=== PATIENT | female | born 1955 | race Caucasian/White ===

== ENCOUNTER 2016-06-12 17:53 | Inpatient (IN) ==
--- NOTE | 2016-06-12 18:12 | Emergency Department Note ---
START Narrative - START START: I examined this patient and my medical decision-making was reviewed with the PIG BREEDER/PA/Advanced Practice Nurse/Resident Physician. I agree with the documented findings, disposition and treatment plan as described except to the extent set forth below. ED attending note: Patient seen with emergency medicine resident Dr. Callahan. We independently evaluated the patient. We independently had [id number] contact with the patient. Please see a copy of his note for details of the history and physical, evaluation, management and disposition of this emergency Department patient. Briefly: A 60-year-old female history of cancer presents unresponsive per EMS from home. Pinpoint pupils. Blood sugar and field was 92. Patient has cool hands and feet pinpoint pupils. Seems to be responding to 2 A of Narcan given in field by EMS. Patient's left-sided chest port was accessed. Rectal temperature shows a reading of 93 degrees, which is moderate hypothermia. Provided one hour and 10 minutes of critical care services for this patient. No known advanced directives. Sepsis protocol ordered and being initiated. Disposition pending.
[2016-06-12] MEDS: 0.9 % Sodium Chloride 1,000 ML IVC SCH ×2 (18:15→18:30)
--- NOTE | 2016-06-12 18:18 | Emergency Department Note ---
Disposition Clinical Impression: Septic shock, Shock liver, SHERICE (acute kidney injury), Lactic acidosis, Acute respiratory failure with hypercapnia Altered mental status Qualifiers: Altered mental status type: coma Coma depth: Fernando coma 3-8 Coma timing: at arrival to emergency department Qualified Code(s): R40.2432 - Fernando coma scale score 3-8, at arrival to emergency department Sepsis Qualifiers: Sepsis type: sepsis due to unspecified organism Qualified Code(s): A41.9 - Sepsis, unspecified organism UTI (urinary tract infection) Qualifiers: Urinary tract infection type: site unspecified Hematuria presence: with hematuria Qualified Code(s): N39.0 - Urinary tract infection, site not specified ; R31.9 - Hematuria, unspecified Disposition: Admitted As Inpatient Condition: Critical Time of Disposition: 20:49 Altered Mental Status HPI - General Chief Complaint: ED Altered Mental Status Stated Complaint: AMS Source: EMS Mode of arrival: EMS Limitations: altered mental status Nursing Notes Reviewed: Yes Vital Signs Reviewed: Yes - History of Present Illness HPI Narrative: 60-year-old female with a history of lung cancer presents to the emergency department for evaluation of altered mental status. The history surrounding the patient's presentation is severely limited due to the patient's mentation. Per EMS they were called for a poorly responsive female. The only details that they were given is that she has a history of cancer. When he arrived they noted that the patient had pinpoint pupils and gave her 4 mg of Narcan in route with limited responsiveness. Patient arrives to the emergency department altered and in distress. Patient is noted to be hypotensive 90s systolic. She also noted to be relatively hypoxic at 88% on nonrebreather. That is steadily increasing with resuscitation efforts. Initial GCS is 4 to 5. Gag reflex is unobtainable secondary to the patient's clenching. Airway is patent without sonorous respirations. Initial rectal temperature is 93F. Pupils are pinpoint and nonreactive. Lungs are diminished bilaterally. Abdomen is soft and nontender. Heart regular rate and rhythm. Patient does have moderate pedal edema noted. Extremities are cool and mottled. There is no clear resuscitation status known at this time. We are awaiting family's arrival to determine CODE STATUS. MD complaint: altered mental status, decreased responsiveness Onset (ago): unknown Context: cancer Treatments prior to arrival: IV fluid, oxygen - Related Data Home Medications Medication Instructions Recorded Confirmed Mykelpril [Zestril] 2.5 mg PO DAILY 12/22/15 06/12/16 Furosemide [Lasix] 20 mg PO DAILY PRN 04/19/16 06/12/16 Metoprolol Succinate 12.5 mg PO DAILY 04/19/16 06/12/16 Aspirin 81 mg PO DAILY 06/06/16 06/12/16 Oxygen 2 l NS AD PRN 06/06/16 06/12/16 Potassium Chloride [K-Tab ER] 10 meq PO DAILY 06/06/16 06/12/16 Atorvastatin [Lipitor] 40 mg PO DAILY 06/12/16 06/12/16 Budesonide/Formoterol 160/4.5 2 puff IH BID 06/12/16 06/12/16 [Symbicort 160/4.5] Dexamethasone [Decadron] 4 mg PO BID 06/12/16 06/12/16 Levofloxacin [Levaquin] 500 mg PO DAILY 06/12/16 06/12/16 Ondansetron HCl [Zofran] 4 mg PO Q6H PRN 06/12/16 06/12/16 Prochlorperazine Maleate 10 mg PO Q6HR PRN 06/12/16 06/12/16 [Compazine] Allergies Allergy/AdvReac Type Severity Reaction Status Date / Time No Known Allergies Allergy Verified 06/06/16 13:20 Limitations: ROS unobtainable due to patients medical condition (Altered mentation) Past Medical History - Past Medical History Medical history: Reports: cancer, CHF, COPD, coronary artery disease, myocardial infarction, TIA Surgical history: Reports: no surgical history Psychiatric history: Reports: no psych history - Social History Smoking Status: Current every day smoker Smokeless Tobacco Status: No Alcohol use: Reports: none Drug use: Reports: none Physical Exam - General Limitations: altered mental status General appearance: obtunded, other - Head Head exam: atraumatic, normocephalic, normal inspection - Eye Eye exam: Present: miosis - ENT ENT exam: normal oropharynx, mucous membranes moist - Neck Neck exam: Present: normal inspection, trachea midline - Chest Chest inspection: Present: normal inspection, symmetric chest wall rise - Respiratory Respiratory exam: Present: other (Diminished breath sounds bilaterally) - Cardiovascular Cardiovascular exam: Present: regular rate, normal rhythm, normal heart sounds - Abdominal Exam Abdominal exam: Present: soft, Non-Tender. Absent: tenderness, distention, guarding, rebound, rigidity - Extremities Exam Extremities exam: Present: pedal edema - Neurological Exam Neurological exam: Present: other (Patient is altered and poorly responsive, initial GCS of 4) - Skin Skin exam: Present: mottled Course - Reevaluation(s) Reevaluation #1: No family present in the emergency department. I reviewed the patient's previous oncology notes and I do not see any documented CODE STATUS. The patient 's mentation remains poor. ABG returns and is noted to be profoundly acidotic and hypercapnic. GCS remains 4-5. Decision is made to proceed with intubation to protect the patient's airway as well as improve oxygenation and ventilation. Please see procedure note for further details. Time: 18:50 Reevaluation #2: Discussed findings with hospitalist service. Patient accepted for further evaluation and treatment. Patient is in critical condition at time of disposition. I did discuss with the family that the patient is seriously ill and may not live through the night. They are understanding and will return in the morning. Time: 20:48 Vital Signs Temperature 93 F L 06/12/16 17:56 Pulse Rate 71 06/12/16 17:56 Respiratory Rate 22 06/12/16 17:56 Blood Pressure 92/30 06/12/16 17:56 O2 Sat by Pulse Oximetry 94 L 06/12/16 17:56 Temperature 93 F L 06/12/16 17:56 Pulse Rate 75 06/12/16 20:35 Respiratory Rate 20 06/12/16 20:35 Blood Pressure 84/41 06/12/16 20:35 O2 Sat by Pulse Oximetry 99 06/12/16 20:35 Oxygen Delivery Oxygen Delivery Ventilator Procedures - Intubation Time out performed: No sedative: Etomidate Mg Given: 20 paralytic: Rocuronium Mg Given: 70 Laryngoscope: Dannielle ET Tube Size: 7.5 ET Tube Uncuffed: No Tube Secured Depth (cm): 21 Tube Secured Location: teeth Tube Placement Confirmation: visualized tube passing through cords, equal breath sounds bilaterally, no breath sounds over epigastrium, confirmation by capnometry Patient Tolerated Procedure: well, no complications Intubation Complications: none Altered Mental Status - Medical Records Medical records reviewed: Yes I reviewed the patient's medical records. - Lab Data Lab results reviewed: Yes I reviewed the patient's lab results. Result diagrams: 06/12/16 19:10 06/12/16 19:10 Lab Results 06/12/16 06/12/16 06/12/16 Range/Units 18:11 18:15 19:10 WBC 24.1 H (4.3-11.1) K/mcL RBC 3.21 L (3.82-4.97) M/mcL Hgb 10.4 L (11.5-15.4) g/dL Hct 37.0 (35.3-44.9) % MCV 115.3 H D (83.0-100.0) fL MCH 32.4 (28.0-33.3) pg MCHC 28.1 L (31.6-35.5) g/dL RDW 16.8 H (11.5-14.5) % Plt Count 236 (140-400) K/mcL MPV 10.6 (9.4-12.4) fL Immature Gran % 1.0 (0-4) % Seg Neutrophils % 95.4 % Lymphocytes % 0.9 % Monocytes % 2.6 % Eosinophils % 0.0 % Basophils % 0.1 % Neutrophils # 23.0 H (1.6-8.9) K/mcL Lymphocytes # 0.2 L (0.6-4.6) K/mcL Monocytes # 0.6 (0.0-1.3) K/mcL Eosinophils # 0.0 (0.0-0.6) K/mcL Basophils # 0.0 (0.0-0.2) K/mcL Nucleated RBCs/100 WBC 0.4 H (0) /100 WBC Platelet Estimate Normal (Normal) Hypochromasia Present A (Not Present) Anisocytosis 2+ A (Not Present) Macrocytosis Present A (Not Present) ABG pH 6.94 L* (7.32-7.45) pH Units ABG pCO2 90 H* (35-45) mmHg ABG pO2 94 (85-104) mmHg ABG HCO3 19.3 L (21-27) mEQ/L ABG Total CO2 22.1 (20-26) mEq/L ABG O2 Saturation 91 L (95-98) % ABG Base Excess -14.5 L (-2.0 to 3.0) mEq/L Blood Gas Modality NRB Inspired O2 100 % Sodium (136-145) mEq/L Potassium (3.5-4.5) mEq/L Chloride (98-109) mEq/L Carbon Dioxide (19-29) mEq/L BUN (7-20) mg/dL Creatinine (0.57-1.11) mg/dL Est GFR ( Amer) (> 60) Est GFR (Non-Af Amer) (> 60) BUN/Creatinine Ratio (6-26) Glucose (70-99) mg/dL Calculated Osmolality (280-300) Lactic Acid (0.5-2.2) mmol/L Calcium (8.6-10.8) mg/dL Phosphorus (2.3-4.7) mg/dL Magnesium (1.6-2.6) mg/dL Total Bilirubin (0.2-1.2) mg/dL Direct Bilirubin (0.0-0.5) mg/dL Indirect Bilirubin (0.0-1.2) mg/dL AST (5-34) Units/L ALT (0-55) Units/L Alkaline Phosphatase (38-126) Units/L Troponin I (0-0.03) ng/mL Serum Total Protein (6.0-8.3) g/dL Albumin (3.5-5.0) g/dL Globulin (2.4-3.5) g/dL Albumin/Globulin Ratio (1.1-2.2) Urine Color Yellow (Yellow) Urine Clarity Cloudy A (Clear) Urine pH 5.0 (5.0-8.0) pH Units Ur Specific Donalds 1.025 (1.010-1.025) Urine Protein 100 H (Neg-Trace) mg/dL Urine Glucose (UA) Normal (Normal) mg/dL Urine Ketones Negative (Negative) mg/dL Urine Blood Negative (Negative) Urine Nitrite Negative (Negative) Urine Bilirubin Small H (Negative) Urine Urobilinogen Normal (Normal) mg/dL Ur Leukocyte Esterase Small H (Negative) Urine Microscopic RBC 3-5 H (0-3) per hpf Urine Microscopic WBC TNTC H (0-3) per hpf Ur Squamous Epith Cells Many H (None-Few) per lpf Urine Bacteria Many H (None-Few) per hpf Hyaline Casts Few (None-Few) per lpf Urine Yeast Few H (None Seen) per hpf Ur Culture Indicated? YES A (NO) 06/12/16 06/12/16 06/12/16 Range/Units 19:10 19:10 19:10 WBC (4.3-11.1) K/mcL RBC (3.82-4.97) M/mcL Hgb (11.5-15.4) g/dL Hct (35.3-44.9) % MCV (83.0-100.0) fL MCH (28.0-33.3) pg MCHC (31.6-35.5) g/dL RDW (11.5-14.5) % Plt Count (140-400) K/mcL MPV (9.4-12.4) fL Immature Gran % (0-4) % Seg Neutrophils % % Lymphocytes % % Monocytes % % Eosinophils % % Basophils % % Neutrophils # (1.6-8.9) K/mcL Lymphocytes # (0.6-4.6) K/mcL Monocytes # (0.0-1.3) K/mcL Eosinophils # (0.0-0.6) K/mcL Basophils # (0.0-0.2) K/mcL Nucleated RBCs/100 WBC (0) /100 WBC Platelet Estimate (Normal) Hypochromasia (Not Present) Anisocytosis (Not Present) Macrocytosis (Not Present) ABG pH (7.32-7.45) pH Units ABG pCO2 (35-45) mmHg ABG pO2 (85-104) mmHg ABG HCO3 (21-27) mEQ/L ABG Total CO2 (20-26) mEq/L ABG O2 Saturation (95-98) % ABG Base Excess (-2.0 to 3.0) mEq/L Blood Gas Modality Inspired O2 % Sodium 140 (136-145) mEq/L Potassium 5.5 H (3.5-4.5) mEq/L Chloride 105 (98-109) mEq/L Carbon Dioxide 17 L (19-29) mEq/L BUN 42 H (7-20) mg/dL Creatinine 2.34 H (0.57-1.11) mg/dL Est GFR ( Amer) 26 L (> 60) Est GFR (Non-Af Amer) 21 L (> 60) BUN/Creatinine Ratio 18 (6-26) Glucose 102 H (70-99) mg/dL Calculated Osmolality 301 H (280-300) Lactic Acid 9.6 H* (0.5-2.2) mmol/L Calcium 6.8 L (8.6-10.8) mg/dL Phosphorus 9.6 H (2.3-4.7) mg/dL Magnesium 1.9 (1.6-2.6) mg/dL Total Bilirubin 1.2 (0.2-1.2) mg/dL Direct Bilirubin 0.8 H (0.0-0.5) mg/dL Indirect Bilirubin 0.4 (0.0-1.2) mg/dL AST 4520 H (5-34) Units/L ALT 1811 H (0-55) Units/L Alkaline Phosphatase 100 (38-126) Units/L Troponin I 0.17 H* (0-0.03) ng/mL Serum Total Protein 5.2 L (6.0-8.3) g/dL Albumin 1.6 L (3.5-5.0) g/dL Globulin 3.6 H (2.4-3.5) g/dL Albumin/Globulin Ratio 0.4 L (1.1-2.2) Urine Color (Yellow) Urine Clarity (Clear) Urine pH (5.0-8.0) pH Units Ur Specific Donalds (1.010-1.025) Urine Protein (Neg-Trace) mg/dL Urine Glucose (UA) (Normal) mg/dL Urine Ketones (Negative) mg/dL Urine Blood (Negative) Urine Nitrite (Negative) Urine Bilirubin (Negative) Urine Urobilinogen (Normal) mg/dL Ur Leukocyte Esterase (Negative) Urine Microscopic RBC (0-3) per hpf Urine Microscopic WBC (0-3) per hpf Ur Squamous Epith Cells (None-Few) per lpf Urine Bacteria (None-Few) per hpf Hyaline Casts (None-Few) per lpf Urine Yeast (None Seen) per hpf Ur Culture Indicated? (NO) - Radiology Data Radiology results reviewed: Yes I reviewed the patient's radiology results. - EKG Data EKG attestation: Yes I reviewed and interpreted this EKG. EKG shows normal: sinus rhythm Rate: normal Rhythm: NSR Eagle/QRS: normal Interpretation: no acute changes TPA Checklist - LKW: 3-4.5 hrs Add. Contraindications Patient/family understanding: The patient/family members have been counseled and understood the risk, benefit , and alternatives of treatment.
[2016-06-12 18:20] LABS: ABG Base Excess -14.5 mEq/L (-2.0 to 3.0); ABG HCO3 19.3 mEQ/L (21-27); ABG Oxygen Saturation 91 % (95-98); ABG PO2 94 mmHg (85-104); ABG TCO2 22.1 mEq/L (20-26)
[2016-06-12 18:21] LABS: Blood Gas FiO2 100 %
[2016-06-12 18:22] LABS: ABG PH 6.94 pH Units (7.32-7.45)
[2016-06-12 18:23] LABS: ABG PCO2 90 mmHg (35-45)
[2016-06-12 18:49] LABS: Bilirubin,Urine Small (Negative); Blood,Urine Negative (Negative); Clarity,Urine Cloudy (Clear); Color,Urine Yellow (Yellow); Glucose,Urine (UA) Normal (Normal); Ketones,Urine Negative (Negative); Leukocyte Esterase,Urine Small (Negative); Nitrite,Urine Negative (Negative); Protein,Urine 100 mg/dL (Neg-Trace); Specific Gravity,Urine 1.025 (1.010-1.025); Urobilinogen,Urine Normal (Normal)
[2016-06-12 18:52] LABS: Squamous Epithelial Cell,Urine Many per lpf (None-Few); WBC,Urine TNTC per hpf (0-3)
[2016-06-12] MEDS ORDERED: *HR* Rocuronium Bromide 50 MG/5 ML VIAL IVP ONE (18:53)
[2016-06-12] MEDS ORDERED: *HR* Etomidate 20 MG/10 ML AMPUL IVP ONE (18:54)
[2016-06-12] MEDS ORDERED: 0.9 % Sodium Chloride 1,000 ML IV ONE (18:55)
[2016-06-12] MEDS ORDERED: 0.9 % Sodium Chloride 1,000 ML IVC SCH (19:00)
[2016-06-12 19:03] LABS: Bacteria,Urine Many per hpf (None-Few); Hyaline Casts,Urine Few per lpf (None-Few); Yeast,Urine Few per hpf (None Seen)
[2016-06-12] MEDS: Norepinephrine 4 MG in D5% in Water 250 ML IVC SCH ×2 (19:22→23:44)
[2016-06-12 19:23] LABS: Mean Platelet Volume 10.6 fL (9.4-12.4)
[2016-06-12 19:24] LABS: Basophils % 0.1 %; Hemoglobin 10.4 g/dL (11.5-15.4); Lymphocytes # 0.2 K/mcL (0.6-4.6); Lymphocytes % 0.9 %; Mean Corpuscular HGB Conc 28.1 g/dL (31.6-35.5); Mean Corpuscular Hemoglobin 32.4 pg (28.0-33.3); Mean Corpuscular Volume 115.3 fL (83.0-100.0); Monocytes # 0.6 K/mcL (0.0-1.3); Monocytes % 2.6 %; Nucleated Red Blood Cells 0.4 /100 WBC (0); Platelet Count 236 K/mcL (140-400); Red Blood Count 3.21 M/mcL (3.82-4.97); Red Cell Distribution Width 16.8 % (11.5-14.5); Segmented Neutrophils % 95.4 %
[2016-06-12] MEDS ORDERED: Vancomycin 750 MG in D5% in Water 250 ML IVPB ONE (19:34)
[2016-06-12] MEDS ORDERED: Piperacillin/Tazobactam 3.375 GM in D5% in Water (Mini-Bag+) 100 ML IVPB ONE (19:34)
[2016-06-12] MEDS ORDERED: Levofloxacin 750 MG/150 ML 750 MG/150 ML BAG IVPB ONE (19:34)
[2016-06-12 19:35] LABS: Albumin/Globulin Ratio 0.4 (1.1-2.2); Bilirubin,Direct 0.8 mg/dL (0.0-0.5); Bilirubin,Indirect 0.4 mg/dL (0.0-1.2); Bilirubin,Total 1.2 mg/dL (0.2-1.2); Calcium 6.8 mg/dL (8.6-10.8); Globulin 3.6 g/dL (2.4-3.5); Magnesium 1.9 mg/dL (1.6-2.6); Phosphorous 9.6 mg/dL (2.3-4.7); Potassium 5.5 mEq/L (3.5-4.5); Total Protein 5.2 g/dL (6.0-8.3)
[2016-06-12 19:38] LABS: Albumin 1.6 g/dL (3.5-5.0)
[2016-06-12] MEDS ORDERED: Dexmedetomidine HCl 400 MCG/100 ML MLS IVC SCH (19:45)
[2016-06-12 19:46] LABS: Anisocytosis 2+ (Not Present); Hypochromasia Present (Not Present); Macrocytosis Present (Not Present); Platelet Estimate Normal (Normal)
--- NOTE | 2016-06-12 20:43 | Emergency Department Note ---
Disposition Clinical Impression: Septic shock, Shock liver, SHERICE (acute kidney injury), Lactic acidosis, Acute respiratory failure with hypercapnia Altered mental status Qualifiers: Altered mental status type: coma Coma depth: Fernando coma 3-8 Coma timing: at arrival to emergency department Qualified Code(s): R40.2432 - Fernando coma scale score 3-8, at arrival to emergency department Sepsis Qualifiers: Sepsis type: sepsis due to unspecified organism Qualified Code(s): A41.9 - Sepsis, unspecified organism UTI (urinary tract infection) Qualifiers: Urinary tract infection type: site unspecified Hematuria presence: with hematuria Qualified Code(s): N39.0 - Urinary tract infection, site not specified Disposition: Admitted As Inpatient Condition: Critical Time of Disposition: 18:40 Altered Mental Status HPI - General Chief Complaint: ED Altered Mental Status Stated Complaint: AMS Source: EMS Mode of arrival: EMS Limitations: altered mental status Nursing Notes Reviewed: Yes Vital Signs Reviewed: Yes - History of Present Illness MD complaint: altered mental status - Related Data Home Medications Medication Instructions Recorded Confirmed Lisinopril [Zestril] 2.5 mg PO DAILY 12/22/15 06/12/16 Furosemide [Lasix] 20 mg PO DAILY PRN 04/19/16 06/12/16 Metoprolol Succinate 12.5 mg PO DAILY 04/19/16 06/12/16 Aspirin 81 mg PO DAILY 06/06/16 06/12/16 Oxygen 2 l NS AD PRN 06/06/16 06/12/16 Potassium Chloride [K-Tab ER] 10 meq PO DAILY 06/06/16 06/12/16 Atorvastatin [Lipitor] 40 mg PO DAILY 06/12/16 06/12/16 Budesonide/Formoterol 160/4.5 2 puff IH BID 06/12/16 06/12/16 [Symbicort 160/4.5] Dexamethasone [Decadron] 4 mg PO BID 06/12/16 06/12/16 Levofloxacin [Levaquin] 500 mg PO DAILY 06/12/16 06/12/16 Ondansetron HCl [Zofran] 4 mg PO Q6H PRN 06/12/16 06/12/16 Prochlorperazine Maleate 10 mg PO Q6HR PRN 06/12/16 06/12/16 [Compazine] Allergies Allergy/AdvReac Type Severity Reaction Status Date / Time No Known Allergies Allergy Verified 06/06/16 13:20 Past Medical History - Past Medical History Medical history: Reports: cancer, CHF, COPD, coronary artery disease, myocardial infarction, TIA Surgical history: Reports: no surgical history Psychiatric history: Reports: no psych history - Social History Smoking Status: Current every day smoker Smokeless Tobacco Status: No Alcohol use: Reports: none Drug use: Reports: none Physical Exam - General Limitations: altered mental status General appearance: obtunded, other Course Vital Signs Temperature 93 F L 06/12/16 17:56 Pulse Rate 71 06/12/16 17:56 Respiratory Rate 22 06/12/16 17:56 Blood Pressure 92/30 06/12/16 17:56 O2 Sat by Pulse Oximetry 94 L 06/12/16 17:56 Temperature 98.3 F 06/13/16 11:23 Pulse Rate 90 06/13/16 11:30 Respiratory Rate 18 06/13/16 11:30 Blood Pressure 97/62 06/13/16 11:30 O2 Sat by Pulse Oximetry 81 L 06/13/16 12:25 Oxygen Delivery Oxygen Delivery Ventilator Procedures - Intubation Time out performed: Yes sedative: Etomidate Mg Given: 20 paralytic: Rocuronium Mg Given: 70 Laryngoscope: Dannielle ET Tube Size: 7.5 ET Tube Uncuffed: No Tube Secured Depth (cm): 22 Tube Secured Location: lips Tube Placement Confirmation: visualized tube passing through cords, equal breath sounds bilaterally, no breath sounds over epigastrium, confirmation by capnometry Patient Tolerated Procedure: no complications Intubation Complications: none Altered Mental Status - [facility] Narrative Medical decision making narrative: This is a procedure note for any emergent endotracheal tube intubation - Lab Data Result diagrams: 06/13/16 04:10 06/13/16 04:10 Lab Results 06/12/16 06/12/16 06/12/16 Range/Units 18:11 18:15 19:10 WBC 24.1 H (4.3-11.1) K/mcL RBC 3.21 L (3.82-4.97) M/mcL Hgb 10.4 L (11.5-15.4) g/dL Hct 37.0 (35.3-44.9) % MCV 115.3 H D (83.0-100.0) fL MCH 32.4 (28.0-33.3) pg MCHC 28.1 L (31.6-35.5) g/dL RDW 16.8 H (11.5-14.5) % Plt Count 236 (140-400) K/mcL MPV 10.6 (9.4-12.4) fL Immature Gran % 1.0 (0-4) % Seg Neutrophils % 95.4 % Lymphocytes % 0.9 % Monocytes % 2.6 % Eosinophils % 0.0 % Basophils % 0.1 % Neutrophils # 23.0 H (1.6-8.9) K/mcL Lymphocytes # 0.2 L (0.6-4.6) K/mcL Monocytes # 0.6 (0.0-1.3) K/mcL Eosinophils # 0.0 (0.0-0.6) K/mcL Basophils # 0.0 (0.0-0.2) K/mcL Nucleated RBCs/100 WBC 0.4 H (0) /100 WBC Platelet Estimate Normal (Normal) Hypochromasia Present A (Not Present) Anisocytosis 2+ A (Not Present) Macrocytosis Present A (Not Present) ABG pH 6.94 L* (7.32-7.45) pH Units ABG pCO2 90 H* (35-45) mmHg ABG pO2 94 (85-104) mmHg ABG HCO3 19.3 L (21-27) mEQ/L ABG Total CO2 22.1 (20-26) mEq/L ABG O2 Saturation 91 L (95-98) % ABG Base Excess -14.5 L (-2.0 to 3.0) mEq/L Blood Gas Modality NRB Inspired O2 100 % Sodium (136-145) mEq/L Potassium (3.5-4.5) mEq/L Chloride (98-109) mEq/L Carbon Dioxide (19-29) mEq/L BUN (7-20) mg/dL Creatinine (0.57-1.11) mg/dL Est GFR ( Amer) (> 60) Est GFR (Non-Af Amer) (> 60) BUN/Creatinine Ratio (6-26) Glucose (70-99) mg/dL Calculated Osmolality (280-300) Lactic Acid (0.5-2.2) mmol/L Calcium (8.6-10.8) mg/dL Phosphorus (2.3-4.7) mg/dL Magnesium (1.6-2.6) mg/dL Total Bilirubin (0.2-1.2) mg/dL Direct Bilirubin (0.0-0.5) mg/dL Indirect Bilirubin (0.0-1.2) mg/dL AST (5-34) Units/L ALT (0-55) Units/L Alkaline Phosphatase (38-126) Units/L Troponin I (0-0.03) ng/mL Serum Total Protein (6.0-8.3) g/dL Albumin (3.5-5.0) g/dL Globulin (2.4-3.5) g/dL Albumin/Globulin Ratio (1.1-2.2) Urine Color Yellow (Yellow) Urine Clarity Cloudy A (Clear) Urine pH 5.0 (5.0-8.0) pH Units Ur Specific Stuart 1.025 (1.010-1.025) Urine Protein 100 H (Neg-Trace) mg/dL Urine Glucose (UA) Normal (Normal) mg/dL Urine Ketones Negative (Negative) mg/dL Urine Blood Negative (Negative) Urine Nitrite Negative (Negative) Urine Bilirubin Small H (Negative) Urine Urobilinogen Normal (Normal) mg/dL Ur Leukocyte Esterase Small H (Negative) Urine Microscopic RBC 3-5 H (0-3) per hpf Urine Microscopic WBC TNTC H (0-3) per hpf Ur Squamous Epith Cells Many H (None-Few) per lpf Urine Bacteria Many H (None-Few) per hpf Hyaline Casts Few (None-Few) per lpf Urine Yeast Few H (None Seen) per hpf Ur Culture Indicated? YES A (NO) 06/12/16 06/12/16 06/12/16 Range/Units 19:10 19:10 19:10 WBC (4.3-11.1) K/mcL RBC (3.82-4.97) M/mcL Hgb (11.5-15.4) g/dL Hct (35.3-44.9) % MCV (83.0-100.0) fL MCH (28.0-33.3) pg MCHC (31.6-35.5) g/dL RDW (11.5-14.5) % Plt Count (140-400) K/mcL MPV (9.4-12.4) fL Immature Gran % (0-4) % Seg Neutrophils % % Lymphocytes % % Monocytes % % Eosinophils % % Basophils % % Neutrophils # (1.6-8.9) K/mcL Lymphocytes # (0.6-4.6) K/mcL Monocytes # (0.0-1.3) K/mcL Eosinophils # (0.0-0.6) K/mcL Basophils # (0.0-0.2) K/mcL Nucleated RBCs/100 WBC (0) /100 WBC Platelet Estimate (Normal) Hypochromasia (Not Present) Anisocytosis (Not Present) Macrocytosis (Not Present) ABG pH (7.32-7.45) pH Units ABG pCO2 (35-45) mmHg ABG pO2 (85-104) mmHg ABG HCO3 (21-27) mEQ/L ABG Total CO2 (20-26) mEq/L ABG O2 Saturation (95-98) % ABG Base Excess (-2.0 to 3.0) mEq/L Blood Gas Modality Inspired O2 % Sodium 140 (136-145) mEq/L Potassium 5.5 H (3.5-4.5) mEq/L Chloride 105 (98-109) mEq/L Carbon Dioxide 17 L (19-29) mEq/L BUN 42 H (7-20) mg/dL Creatinine 2.34 H (0.57-1.11) mg/dL Est GFR ( Amer) 26 L (> 60) Est GFR (Non-Af Amer) 21 L (> 60) BUN/Creatinine Ratio 18 (6-26) Glucose 102 H (70-99) mg/dL Calculated Osmolality 301 H (280-300) Lactic Acid 9.6 H* (0.5-2.2) mmol/L Calcium 6.8 L (8.6-10.8) mg/dL Phosphorus 9.6 H (2.3-4.7) mg/dL Magnesium 1.9 (1.6-2.6) mg/dL Total Bilirubin 1.2 (0.2-1.2) mg/dL Direct Bilirubin 0.8 H (0.0-0.5) mg/dL Indirect Bilirubin 0.4 (0.0-1.2) mg/dL AST 4520 H (5-34) Units/L ALT 1811 H (0-55) Units/L Alkaline Phosphatase 100 (38-126) Units/L Troponin I 0.17 H* (0-0.03) ng/mL Serum Total Protein 5.2 L (6.0-8.3) g/dL Albumin 1.6 L (3.5-5.0) g/dL Globulin 3.6 H (2.4-3.5) g/dL Albumin/Globulin Ratio 0.4 L (1.1-2.2) Urine Color (Yellow) Urine Clarity (Clear) Urine pH (5.0-8.0) pH Units Ur Specific Stuart (1.010-1.025) Urine Protein (Neg-Trace) mg/dL Urine Glucose (UA) (Normal) mg/dL Urine Ketones (Negative) mg/dL Urine Blood (Negative) Urine Nitrite (Negative) Urine Bilirubin (Negative) Urine Urobilinogen (Normal) mg/dL Ur Leukocyte Esterase (Negative) Urine Microscopic RBC (0-3) per hpf Urine Microscopic WBC (0-3) per hpf Ur Squamous Epith Cells (None-Few) per lpf Urine Bacteria (None-Few) per hpf Hyaline Casts (None-Few) per lpf Urine Yeast (None Seen) per hpf Ur Culture Indicated? (NO) TPA Checklist - LKW: 3-4.5 hrs Add. Contraindications Patient/family understanding: The patient/family members have been counseled and understood the risk, benefit , and alternatives of treatment.
[2016-06-12] MEDS ORDERED: Sodium Bicarbonate 50 MEQ/50 ML VIAL IVP ONE (21:03)
[2016-06-12] MEDS ORDERED: Hydrocortisone Sodium Succ 100 MG/2 ML VIAL IVP ONE (21:03)
[2016-06-12] MEDS ORDERED: Hydrocortisone Sodium Succ 100 MG/2 ML VIAL ONE (21:06)
[2016-06-12] MEDS ORDERED: *HR* LORazepam 2 MG/ML VIAL IVP PRN (21:14)
[2016-06-12] MEDS ORDERED: *HR* Morphine 2 MG/ML SYRINGE IVP PRN (21:14)
[2016-06-12] MEDS ORDERED: Ondansetron 4 MG/2 ML VIAL IVP PRN (21:14)
[2016-06-12] MEDS ORDERED: Naloxone 0.4 MG/ML INJ IVP PRN (21:14)
[2016-06-12] MEDS ORDERED: Lacri-Lube 3.5 GM TUBE BOTH EYES PRN (21:28)
[2016-06-12] MEDS ORDERED: Norepinephrine 4 MG in D5% in Water 250 ML IVC SCH (21:30)
[2016-06-12] MEDS ORDERED: FentaNYL (PF) 1,000 MCG in 0.9 % Sodium Chloride 80 ML IVC SCH (21:45)
[2016-06-12] MEDS ORDERED: Vancomycin (wt based) 1,000 MG VIAL IVPB SCH (22:00)
[2016-06-12 22:02] LABS: ABG Base Excess -2.6 mEq/L (-2.0 to 3.0); ABG HCO3 25.7 mEQ/L (21-27); ABG Oxygen Saturation 98 % (95-98); ABG PCO2 60 mmHg (35-45); ABG PH 7.24 pH Units (7.32-7.45); ABG PO2 130 mmHg (85-104); ABG TCO2 27.5 mEq/L (20-26); Blood Gas VT 450 cc
--- NOTE | 2016-06-12 22:28 | Internal Med History&Physical ---
Date of Encounter: 06/12/16 Time of Encounter: 21:05 Assessment and Plan (1) Septic shock Current visit: Yes Status: Acute 1. Pt fluid resuscitated in ER and currently on Levophed. 2. Add Stress dose steroids (Hydrocortisone) given that she is on chronic steroids per her med list -- unable to verify home med list however. 3. Blood and urine cultures collected. 4. Pneumonia is likely source. Will continue IV Vancomycin, Zosyn, and Levaquin. De-escalate when/if cultures define organism and sensitivities. 5. Per nursing report, pt had large loose/foul-smelling diarrhea. Will check for Clostridium Difficile and treat if necessary. 6. Continue supportive measures with IVF, pressors, steroids, mechanical ventilation. 7. Consult cement mason for ICU management. Note: 65 minutes critical care time spent reviewing information, evaluating, and treating patient thus far. (2) Multi-organ system dysfunction Current visit: Yes Status: Acute 1. Pt critically ill and mortality risk is high given multi-organ failure as evidenced by shock liver, SHERICE, respiratory failure, hemodynamic collapse, and depressed mental/cognitive state upon presentation. 2. Continue life supporting measures in ICU as noted above and orders. 3. I will try to contact family/daughter and discuss the severity and critical nature of patient state and high mortality risk. Per my discussion with ER staff, they conveyed such concerns to daughter and, despite the concerns conveyed, she left the hospital noting that she might return tomorrow or the following day. 4. Will trend labs and re-evaluate clinically. If condition does not improve, patient may benefit from palliative care consult. (3) Multifocal pneumonia Current visit: Yes Status: Acute 1. Likely source of sepsis. 2. Will obtain sputum culture from ETT. 3. Continue IV Vancomycin, Zosyn, and Levaquin. 4. Cater antibiotics to identified organisms once identified. 5. Ventilatory support and oxygenation as necessary. (4) Lung cancer Current visit: Yes Status: Chronic 1. Per oncology. 2. Outpatient follow up. Reportedly, patient has finished chemotherapy and radiation therapy. 3. If necessary, may consult oncology as inpatient to help guide termite helper goals. Qualifiers: Laterality: right Lung location: upper lobe of lung Qualified Code(s): C34.11 - Malignant neoplasm of upper lobe, right bronchus or lung (5) DVT prophylaxis Current visit: Yes Status: Acute 1. Heparin SQ. Internal Medicine - H&P: HPI Chief complaint: unresponsive Admitted From: Emergency Dept Plans for Post Hospital Care: Transfer Assisted Facility History of present illness: Ms. Tsang is a 60 year old female who presented to the ER by squad after family and/or patient called 911 today. According to squad report, patient has been difficult to arouse for last 1-2 days. Upon arrival to the scene, EMS noted the patient was slumped over and unresponsive, breathing roughly 16 times per minute. She was hypotensive. An IV was established, and she was transported by squad to the hospital. En route, patient received 2 doses of Narcan with little effect. In the ER, patient received fluid resuscitation, quick assessment, and then intubation for respiratory failure. There was no family member present in the ER. The daughter later arrived to the ER and and left shortly thereafter. Patient was noted to be FULL CODE per ER discussion with daughter. Work-up of patient revealed patient to have evidence of septic shock with pneumonia being the likely source. She also has evidence of multiorgan system failure given that she has laboratory data and exam evidence of acute liver injury, kidney injury, respiratory failure, hemodynamic instability, and depressed mental status. Furthermore, she was hypothermic on presentation to the ER. Once stabilized in the ER, patient was admitted to hospitalist service. Upon my assessment of the patient in the ER, she was intubated, sedated, and paralyzed from the effects of rapid sequence intubation. I could not obtain information from patient. There were no family members present. I discussed the case with the ER staff and obtained history from them and old records as well as squad report. Past Med Surg Social Fam HX - Past Medical History Source: old records reviewed, nursing notes reviewed, other (Squad report and discussions with ER staff) Medical history: cancer, CHF, COPD, coronary artery disease, myocardial infarction, TIA Psychiatric history: no psych history - Past Surgical History Surgical History: no surgical history - Social History Smoking Status: Current every day smoker Smokeless Tobacco Status: No Alcohol use: none Drug use: none Current living situation: Home - Independent - Family History Mother Living Status: Hx Family Endocrine Disorder: Yes (Diabetes) Father Living Status: Hx Family Endocrine Disorder: Yes (Diabetes) Sister Living Status: Hx Family Respiratory Disorders: Yes Brother Living Status: Hx Family Endocrine Disorder: Yes (diabetes) Internal Medicine - H&P: Meds Lisinopril [Zestril] 2.5 mg PO DAILY 12/22/15 [History] Furosemide [Lasix] 20 mg PO DAILY PRN 04/19/16 [History] Metoprolol Succinate 12.5 mg PO DAILY 04/19/16 [History] Aspirin 81 mg PO DAILY 06/06/16 [History] Oxygen 2 l NS AD PRN 06/06/16 [History] Potassium Chloride [K-Tab ER] 10 meq PO DAILY 06/06/16 [History] Atorvastatin [Lipitor] 40 mg PO DAILY 06/12/16 [History] Budesonide/Formoterol 160/4.5 [Symbicort 160/4.5] 2 puff IH BID 06/12/16 [ History] Dexamethasone [Decadron] 4 mg PO BID 06/12/16 [History] Levofloxacin [Levaquin] 500 mg PO DAILY 06/12/16 [History] Ondansetron HCl [Zofran] 4 mg PO Q6H PRN 06/12/16 [History] Prochlorperazine Maleate [Compazine] 10 mg PO Q6HR PRN 06/12/16 [History] Allergies No Known Allergies Allergy (Verified 06/06/16 13:20) ROS unobtainable: due to endotracheal tube, due to mental status - Constitutional Vitals: Temp Pulse Resp BP Pulse Ox 93 F L 75 20 98/51 99 06/12/16 17:56 06/12/16 20:35 06/12/16 21:18 06/12/16 21:18 06/12/16 20:35 Exam: sedated, paralyzed (from RSI meds), intubated - Head Head exam: Present: atraumatic, normal inspection - Expanded Head Exam Head exam expanded: Absent: abrasion, contusion - Eye Eye exam: Present: normal appearance. Absent: scleral icterus - ENT ENT exam: Present: mucous membranes dry Additional comments: ETT and OG in place - Neck Neck exam general surgery: Present: full ROM, normal inspection, supple, trachea midline. Absent: nuchal rigidity - Respiratory Respiratory exam: Present: prolonged expiratory phase, rales (both bases and RUL ), rhonchi, wheezes (rare/scattered) - Cardiovascular Cardiovascular exam: Present: distant heart sounds, RRR, +S1, +S2. Absent: diastolic murmur, JVD, systolic murmur - GI/Abdominal GI/Abdominal exam: Present: normal bowel sounds, soft. Absent: hepatomegaly, mass, splenomegaly - Extremities Exam Extremities exam: Absent: joint swelling, normal capillary refill (delayed -- roughly 5- 6 seconds), mottling (not present now, but noted by ER staff to be present upon presentation), pedal edema - Back Exam Back exam: Present: normal inspection - Neurological Exam Additional comments: unable to assess; patient sedated and paralyzed temporarily from RSI meds and intubation in ER. - Psychiatric Additional comments: unable to assess due to sedation - Skin Skin exam: Present: dry, warm. Absent: rash Additional comments: poor perfusion peripherally Internal Med - H&P Results - Labs CBC & Chem 7: 06/12/16 19:10 06/12/16 19:10 - ABG Interpretation Interpretation: ABG interpreted by me Interpretation: respiratory acidosis, metabolic acidosis - EKG Data -: EKG Interpreted by Myself EKG shows normal: sinus rhythm - EKG Data Prior EKG available for review: yes EKG comments: 06/12/16 22:00 sinus rhythm with IVCD; unchanged from prior - Diagnostic Studies CT scan - chest Additional comments: Report reviewed: RUL mass/infiltrate; LLL infiltrate Chest x-ray Status: image reviewed by me (ETT positioned appropriately)
[2016-06-12] MEDS: Budesonide/Formoterol 160/4.5 MDI IH SCH (22:36)
[2016-06-12 22:55] LABS: Basophils % 0.1 %; Mean Corpuscular Hemoglobin 31.5 pg (28.0-33.3); Nucleated Red Blood Cells 0.2 /100 WBC (0)
[2016-06-12 22:56] LABS: Hematocrit 38.1 % (35.3-44.9); Hemoglobin 11.1 g/dL (11.5-15.4); Immature Granulocytes % 0.7 % (0-4); Lymphocytes # 0.4 K/mcL (0.6-4.6); Lymphocytes % 1.4 %; Mean Corpuscular HGB Conc 29.1 g/dL (31.6-35.5); Mean Corpuscular Volume 108.2 fL (83.0-100.0); Mean Platelet Volume 10.5 fL (9.4-12.4); Monocytes # 1.2 K/mcL (0.0-1.3); Monocytes % 4.8 %; Neutrophils # 23.5 K/mcL (1.6-8.9); Platelet Count 210 K/mcL (140-400); Red Blood Count 3.52 M/mcL (3.82-4.97); Red Cell Distribution Width 16.8 % (11.5-14.5)
[2016-06-12 23:01] LABS: INR 1.9; Prothrombin Time 20.6 Seconds (9.4-12.1)
[2016-06-12 23:04] LABS: Activated Partial Thrombo Time 34.5 Seconds (26.0-36.0)
[2016-06-12 23:08] LABS: Albumin/Globulin Ratio 0.4 (1.1-2.2); Bilirubin,Direct 0.9 mg/dL (0.0-0.5); Bilirubin,Indirect 0.4 mg/dL (0.0-1.2); Bilirubin,Total 1.3 mg/dL (0.2-1.2); Calcium 6.6 mg/dL (8.6-10.8); Globulin 3.6 g/dL (2.4-3.5); Total Protein 5.2 g/dL (6.0-8.3)
[2016-06-12 23:09] LABS: Albumin 1.6 g/dL (3.5-5.0)
[2016-06-12 23:17] LABS: Platelet Estimate Normal (Normal)
[2016-06-12 23:18] LABS: Anisocytosis 1+ (Not Present)
[2016-06-12] MEDS: D5% in 0.45% NACL 1,000 ML IVC SCH (23:43)
--- NOTE | 2016-06-12 23:43 | Event Note ---
Date of Encounter: 06/12/16 Time of Encounter: 22:35 I just contacted daughter by phone explaining to her and informing her of the patient's critical state, multi-organ failure, and the high mortality risk. She verbalized understanding. I requested that she gather all available family members and to try to come to the hospital by tomorrow morning. She stated she will try to contact her aunt (patient's sister) who "might" be able to come tomorrow. I requested that daughter also come to hospital tomorrow, but she was not sure she could come. I again reiterated that she try to come and that patient is gravely ill, noting that patient may not survive the night. She again verbalized understanding.
[2016-06-12] MEDS: Lacri-Lube 3.5 GM TUBE BOTH EYES SCH (23:55)
[2016-06-12] MEDS: Hydrocortisone Sodium Succ 100 MG/2 ML VIAL IVP SCH (23:55)
[2016-06-12] MEDS: Pantoprazole 40 MG VIAL IVPB SCH (23:57)
[2016-06-13] MEDS ORDERED: Piperacillin/Tazobactam 3.375 GM in D5% in Water (Mini-Bag+) 100 ML IVPB SCH
[2016-06-13] MEDS ORDERED: Vancomycin 1,000 MG in D5% in Water 250 ML IVPB ONE (00:15)
[2016-06-13 00:42] LABS: ABG HCO3 29.4 mEQ/L (21-27); ABG Oxygen Saturation 97 % (95-98); ABG PCO2 64 mmHg (35-45); ABG PH 7.27 pH Units (7.32-7.45); ABG PO2 105 mmHg (85-104); ABG TCO2 31.4 mEq/L (20-26)
[2016-06-13 00:43] LABS: Blood Gas FiO2 100 %
[2016-06-13 04:26] LABS: ABG Base Excess -1.2 mEq/L (-2.0 to 3.0); ABG HCO3 26.9 mEQ/L (21-27); ABG Oxygen Saturation 94 % (95-98); ABG PCO2 60 mmHg (35-45); ABG PH 7.26 pH Units (7.32-7.45); ABG PO2 80 mmHg (85-104); ABG TCO2 28.7 mEq/L (20-26)
[2016-06-13 04:28] LABS: Blood Gas FiO2 80 %; Blood Gas PEEP 5 cm H2O; Blood Gas VT 450 cc
[2016-06-13 04:38] LABS: Basophils % 0.1 %; Hematocrit 39.2 % (35.3-44.9); Hemoglobin 11.6 g/dL (11.5-15.4); Immature Granulocytes % 0.7 % (0-4); Lymphocytes # 0.1 K/mcL (0.6-4.6); Lymphocytes % 0.6 %; Mean Corpuscular HGB Conc 29.6 g/dL (31.6-35.5); Mean Corpuscular Hemoglobin 31.4 pg (28.0-33.3); Mean Corpuscular Volume 106.2 fL (83.0-100.0); Mean Platelet Volume 10.7 fL (9.4-12.4); Monocytes # 0.3 K/mcL (0.0-1.3); Monocytes % 1.4 %; Neutrophils # 21.6 K/mcL (1.6-8.9); Nucleated Red Blood Cells 0.4 /100 WBC (0); Platelet Count 234 K/mcL (140-400); Red Blood Count 3.69 M/mcL (3.82-4.97); Red Cell Distribution Width 16.7 % (11.5-14.5); Segmented Neutrophils % 97.2 %
[2016-06-13 04:55] LABS: Albumin 1.6 g/dL (3.5-5.0); Albumin/Globulin Ratio 0.4 (1.1-2.2); Bilirubin,Direct 0.7 mg/dL (0.0-0.5); Bilirubin,Indirect 0.4 mg/dL (0.0-1.2); Bilirubin,Total 1.1 mg/dL (0.2-1.2); Calcium 6.7 mg/dL (8.6-10.8); Globulin 3.8 g/dL (2.4-3.5); Potassium 5.1 mEq/L (3.5-4.5); Total Protein 5.4 g/dL (6.0-8.3)
[2016-06-13 04:56] LABS: INR 1.8; Prothrombin Time 19.5 Seconds (9.4-12.1)
[2016-06-13 04:58] LABS: Activated Partial Thrombo Time 31.3 Seconds (26.0-36.0)
[2016-06-13 05:00] LABS: Anisocytosis 1+ (Not Present); Macrocytosis Present (Not Present); Platelet Estimate Normal (Normal)
[2016-06-13] MEDS: D5% in 0.45% NACL 1,000 ML IVC SCH (05:47)
[2016-06-13] MEDS: Lacri-Lube 3.5 GM TUBE BOTH EYES SCH ×2 (05:49→08:31)
[2016-06-13] MEDS ORDERED: D5% in Water 1,000 ML IV PRN (05:54)
[2016-06-13] MEDS ORDERED: Dextrose Gel 15 GM PO PRN ×2 (05:54)
[2016-06-13] MEDS ORDERED: *HR* Dextrose 50 % in Water (Syg) 50 ML SYRINGE IVP PRN (05:54)
[2016-06-13] MEDS ORDERED: Insulin LISPRO 300 UNITS/3 ML VIAL SQ SCH (06:00)
[2016-06-13] MEDS ORDERED: *HR* Heparin 5,000 UNIT/ML VIAL SQ SCH (06:00)
--- NOTE | 2016-06-13 06:36 | Pulmonology History & Physical ---
<Aditi Borja - Last Filed: 06/13/16 06:36> Date of Encounter: 06/13/16 Time of Encounter: 06:36 History of Present Illness HPI: Ms. Tsang is a 60 year old female Past Med Surg Social Fam HX - Past Medical History Medical history: cancer, CHF, COPD, coronary artery disease, myocardial infarction, TIA Psychiatric history: no psych history - Past Surgical History Surgical History: no surgical history - Social History Smoking Status: Current every day smoker Smokeless Tobacco Status: No Alcohol use: none Drug use: none - Family History Mother Living Status: Hx Family Endocrine Disorder: Yes (Diabetes) Father Living Status: Hx Family Endocrine Disorder: Yes (Diabetes) Sister Living Status: Hx Family Respiratory Disorders: Yes Brother Living Status: Hx Family Endocrine Disorder: Yes (diabetes) Medications and Allergies Lisinopril [Zestril] 2.5 mg PO DAILY 12/22/15 [History] Furosemide [Lasix] 20 mg PO DAILY PRN 04/19/16 [History] Metoprolol Succinate 12.5 mg PO DAILY 04/19/16 [History] Aspirin 81 mg PO DAILY 06/06/16 [History] Oxygen 2 l NS AD PRN 06/06/16 [History] Potassium Chloride [K-Tab ER] 10 meq PO DAILY 06/06/16 [History] Atorvastatin [Lipitor] 40 mg PO DAILY 06/12/16 [History] Budesonide/Formoterol 160/4.5 [Symbicort 160/4.5] 2 puff IH BID 06/12/16 [ History] Dexamethasone [Decadron] 4 mg PO BID 06/12/16 [History] Levofloxacin [Levaquin] 500 mg PO DAILY 06/12/16 [History] Ondansetron HCl [Zofran] 4 mg PO Q6H PRN 06/12/16 [History] Prochlorperazine Maleate [Compazine] 10 mg PO Q6HR PRN 06/12/16 [History] Allergies No Known Allergies Allergy (Verified 06/06/16 13:20) All Systems: A 10-system review of systems was performed and is negative for pertinent findings except as documented above in the HPI. Physical Examination Vital Signs: Vital Signs, Last 4 Hours Temp Pulse Resp BP Pulse Ox 06/13/16 06:10 18 104/62 97 06/13/16 06:00 85 18 104/62 98 06/13/16 05:00 85 18 89/60 98 06/13/16 04:03 16 98/47 98 06/13/16 04:00 97.9 F 85 16 98/49 98 06/13/16 03:00 81 16 97/48 97 Results - Laboratory Findings CBC and BMP: 06/13/16 04:10 06/13/16 04:10 ABG ABG pH 7.26 pH Units (7.32-7.45) L 06/13/16 04:15 ABG pCO2 60 mmHg (35-45) H 06/13/16 04:15 ABG pO2 80 mmHg (85-104) L 06/13/16 04:15 ABG O2 Saturation 94 % (95-98) L 06/13/16 04:15 PT/INR, D-dimer PT 19.5 Seconds (9.4-12.1) H 06/13/16 04:10 Abnormal lab findings: Abnormal lab results WBC 22.2 K/mcL (4.3-11.1) H 06/13/16 04:10 RBC 3.69 M/mcL (3.82-4.97) L 06/13/16 04:10 MCV 106.2 fL (83.0-100.0) H 06/13/16 04:10 MCHC 29.6 g/dL (31.6-35.5) L 06/13/16 04:10 RDW 16.7 % (11.5-14.5) H 06/13/16 04:10 Neutrophils # 21.6 K/mcL (1.6-8.9) H 06/13/16 04:10 Lymphocytes # 0.1 K/mcL (0.6-4.6) L 06/13/16 04:10 Nucleated RBCs/100 WBC 0.4 /100 WBC (0) H 06/13/16 04:10 Hypochromasia Present (Not Present) A 06/12/16 19:10 Anisocytosis 1+ (Not Present) A 06/13/16 04:10 Macrocytosis Present (Not Present) A 06/13/16 04:10 PT 19.5 Seconds (9.4-12.1) H 06/13/16 04:10 ABG pH 7.26 pH Units (7.32-7.45) L 06/13/16 04:15 ABG pCO2 60 mmHg (35-45) H 06/13/16 04:15 ABG pO2 80 mmHg (85-104) L 06/13/16 04:15 ABG Total CO2 28.7 mEq/L (20-26) H 06/13/16 04:15 ABG O2 Saturation 94 % (95-98) L 06/13/16 04:15 Sodium 135 mEq/L (136-145) L 06/13/16 04:10 Potassium 5.1 mEq/L (3.5-4.5) H 06/13/16 04:10 BUN 46 mg/dL (7-20) H 06/13/16 04:10 Creatinine 2.18 mg/dL (0.57-1.11) H 06/13/16 04:10 Est GFR ( Amer) 28 (> 60) L 06/13/16 04:10 Est GFR (Non-Af Amer) 23 (> 60) L 06/13/16 04:10 Glucose 252 mg/dL (70-99) H 06/13/16 04:10 POC Glucose 120 (58-89) H 06/12/16 21:30 Lactic Acid 2.5 mmol/L (0.5-2.2) H 06/13/16 04:10 Calcium 6.7 mg/dL (8.6-10.8) L 06/13/16 04:10 Phosphorus 9.6 mg/dL (2.3-4.7) H 06/12/16 19:10 Direct Bilirubin 0.7 mg/dL (0.0-0.5) H 06/13/16 04:10 AST 3722 Units/L (5-34) H 06/13/16 04:10 ALT 1958 Units/L (0-55) H 06/13/16 04:10 Troponin I 0.24 ng/mL (0-0.03) H* 06/13/16 04:10 Serum Total Protein 5.4 g/dL (6.0-8.3) L 06/13/16 04:10 Albumin 1.6 g/dL (3.5-5.0) L 06/13/16 04:10 Globulin 3.8 g/dL (2.4-3.5) H 06/13/16 04:10 Albumin/Globulin Ratio 0.4 (1.1-2.2) L 06/13/16 04:10 Urine Clarity Cloudy (Clear) A 06/12/16 18:11 Urine Protein 100 mg/dL (Neg-Trace) H 06/12/16 18:11 Urine Bilirubin Small (Negative) H 06/12/16 18:11 Ur Leukocyte Esterase Small (Negative) H 06/12/16 18:11 Urine Microscopic RBC 3-5 per hpf (0-3) H 06/12/16 18:11 Urine Microscopic WBC TNTC per hpf (0-3) H 06/12/16 18:11 Ur Squamous Epith Cells Many per lpf (None-Few) H 06/12/16 18:11 Urine Bacteria Many per hpf (None-Few) H 06/12/16 18:11 Urine Yeast Few per hpf (None Seen) H 06/12/16 18:11 Ur Culture Indicated? YES (NO) A 06/12/16 18:11 <Rodney Reece - Last Filed: 06/13/16 12:11> Date of Encounter: 06/13/16 Assessment and Plan (1) Septic shock Current visit: Yes Status: Acute This patient has septic shock secondary to multifocal pneumonia. The patient subsequently developed pressor dependency and multisystem organ failure ( respiratory, renal, hepatic). The patient has advanced non-small cell lung cancer for which she has received palliative chemotherapy and radiation therapy and there is a question as to whether she has progressive disease based on current review of chest CT scan. Overall, this patient has a very poor prognosis for recovery and survivability in light of her comorbidities and current multisystem organ failure. Pending further conversation with family, continue all aggressive medical measures is provided Code(s): A41.9 - Sepsis, unspecified organism; R65.21 - Severe sepsis with septic shock SNOMED Code(s): 31828063 History of Present Illness HPI: Ms. Tsang is a 60 year old female admitted to the intensive care unit with respiratory distress mandating intubation and ventilator support. Given persistent hypotension in spite of fluid administration, the patient was placed on pressor support. Dr. Nicolas also placed a central line overnight and provided the patient with broad-spectrum antimicrobial agents and concern for multisystem organ failure due to pneumonia related septic shock. This morning, the patient remains on full ventilatory support minimally responsive (sedation) and pressor dependent. I reviewed the situation with not Dr. Nicolas this morning and he clearly indicated to the family that the patient had a very poor prognosis for recovery. ROS unobtainable: due to endotracheal tube All Systems: A 10-system review of systems was performed and is negative for pertinent findings except as documented above in the HPI. Physical Examination Vital Signs: Vital Signs, Last 4 Hours Temp Pulse Resp BP Pulse Ox 06/13/16 11:30 90 18 97/62 93 L 06/13/16 11:23 98.3 F 06/13/16 10:30 89 18 92/59 93 L 06/13/16 09:30 87 18 101/59 94 L 06/13/16 08:30 89 18 104/61 95 General appearance: other (Chronically ill-appearing orally intubated female) Eyes: nonicteric Inspection: other (Left subclavian [id number].) Auscultation: bilateral: diminished breath sounds, rhonchi Cardiovascular: regular rate and rhythm Gastrointestinal: normoactive bowel sounds, non-distended Integumentary: decubitus ulcer Extremities: pink and warm, edema Musculoskeletal: no deformities other (Sedated, withdraws to noxious stimuli.) Results - Laboratory Findings CBC and BMP: 06/13/16 04:10 06/13/16 04:10 ABG ABG pH 7.26 pH Units (7.32-7.45) L 06/13/16 04:15 ABG pCO2 60 mmHg (35-45) H 06/13/16 04:15 ABG pO2 80 mmHg (85-104) L 06/13/16 04:15 ABG O2 Saturation 94 % (95-98) L 06/13/16 04:15 PT/INR, D-dimer PT 19.5 Seconds (9.4-12.1) H 06/13/16 04:10 Abnormal lab findings: Abnormal lab results WBC 22.2 K/mcL (4.3-11.1) H 06/13/16 04:10 RBC 3.69 M/mcL (3.82-4.97) L 06/13/16 04:10 MCV 106.2 fL (83.0-100.0) H 06/13/16 04:10 MCHC 29.6 g/dL (31.6-35.5) L 06/13/16 04:10 RDW 16.7 % (11.5-14.5) H 06/13/16 04:10 Neutrophils # 21.6 K/mcL (1.6-8.9) H 06/13/16 04:10 Lymphocytes # 0.1 K/mcL (0.6-4.6) L 06/13/16 04:10 Nucleated RBCs/100 WBC 0.4 /100 WBC (0) H 06/13/16 04:10 Hypochromasia Present (Not Present) A 06/12/16 19:10 Anisocytosis 1+ (Not Present) A 06/13/16 04:10 Macrocytosis Present (Not Present) A 06/13/16 04:10 PT 19.5 Seconds (9.4-12.1) H 06/13/16 04:10 ABG pH 7.26 pH Units (7.32-7.45) L 06/13/16 04:15 ABG pCO2 60 mmHg (35-45) H 06/13/16 04:15 ABG pO2 80 mmHg (85-104) L 06/13/16 04:15 ABG Total CO2 28.7 mEq/L (20-26) H 06/13/16 04:15 ABG O2 Saturation 94 % (95-98) L 06/13/16 04:15 Sodium 135 mEq/L (136-145) L 06/13/16 04:10 Potassium 5.1 mEq/L (3.5-4.5) H 06/13/16 04:10 BUN 46 mg/dL (7-20) H 06/13/16 04:10 Creatinine 2.18 mg/dL (0.57-1.11) H 06/13/16 04:10 Est GFR ( Amer) 28 (> 60) L 06/13/16 04:10 Est GFR (Non-Af Amer) 23 (> 60) L 06/13/16 04:10 Glucose 252 mg/dL (70-99) H 06/13/16 04:10 POC Glucose 120 (58-89) H 06/12/16 21:30 Lactic Acid 2.5 mmol/L (0.5-2.2) H 06/13/16 04:10 Calcium 6.7 mg/dL (8.6-10.8) L 06/13/16 04:10 Phosphorus 9.6 mg/dL (2.3-4.7) H 06/12/16 19:10 Direct Bilirubin 0.7 mg/dL (0.0-0.5) H 06/13/16 04:10 AST 3722 Units/L (5-34) H 06/13/16 04:10 ALT 1958 Units/L (0-55) H 06/13/16 04:10 Troponin I 0.24 ng/mL (0-0.03) H* 06/13/16 04:10 Serum Total Protein 5.4 g/dL (6.0-8.3) L 06/13/16 04:10 Albumin 1.6 g/dL (3.5-5.0) L 06/13/16 04:10 Globulin 3.8 g/dL (2.4-3.5) H 06/13/16 04:10 Albumin/Globulin Ratio 0.4 (1.1-2.2) L 06/13/16 04:10 Urine Clarity Cloudy (Clear) A 06/12/16 18:11 Urine Protein 100 mg/dL (Neg-Trace) H 06/12/16 18:11 Urine Bilirubin Small (Negative) H 06/12/16 18:11 Ur Leukocyte Esterase Small (Negative) H 06/12/16 18:11 Urine Microscopic RBC 3-5 per hpf (0-3) H 06/12/16 18:11 Urine Microscopic WBC TNTC per hpf (0-3) H 06/12/16 18:11 Ur Squamous Epith Cells Many per lpf (None-Few) H 06/12/16 18:11 Urine Bacteria Many per hpf (None-Few) H 06/12/16 18:11 Urine Yeast Few per hpf (None Seen) H 06/12/16 18:11 Ur Culture Indicated? YES (NO) A 06/12/16 18:11
[2016-06-13] MEDS ORDERED: *HR* Vecuronium 10 MG VIAL ONE (07:42)
[2016-06-13] MEDS: Hydrocortisone Sodium Succ 100 MG/2 ML VIAL IVP SCH (08:30)
[2016-06-13] MEDS: Pantoprazole 40 MG VIAL IVPB SCH (08:30)
[2016-06-13] MEDS ORDERED: Levofloxacin 750 MG/150 ML 750 MG/150 ML BAG IVPB SCH (09:00)
[2016-06-13] MEDS ORDERED: Chlorhexidine Rinse 15 ML MOUTHWASH MM SCH (09:00)
--- NOTE | 2016-06-13 11:32 | Electrocardiograph Report ---
[facility] Test Date: 2016-06-12 Pat Name: Cynthia Tsang Department: 105 Room: 03 Gender: F Rotary Helper: TEOFILO : 1955 Requested By: Christopher Cooley Order Number: [id number] Reading MD: Michelle Arce Measurements Intervals [place] Rate: 68 P: 77 WV: 170 QRS: 152 QRSD: 142 T: 11 QT: 497 QTc: 515 Interpretive Statements SINUS RHYTHM WITH OCCASIONAL SUPRAVENTRICULAR PREMATURE COMPLEXES INTRAVENTRICULAR CONDUCTION DELAY ARTIFACT Electronically Signed On 06-13-16 11:31:53 EST by Michelle Arce
[2016-06-13 11:35] VITALS: BP 97/62
--- NOTE | 2016-06-13 11:50 | Event Note ---
Date of Encounter: 06/13/16 Time of Encounter: 11:47 I met with the 2 daughters in the patient's sister is morning reviewed the situation at length discussed the poor prognosis in light of the patient's underlying advanced non-small cell lung cancer, COPD and current multisystem organ failure from pneumonia and septic shock. All 3 family members agreed that the current care provided to the mother would be contrary to her wishes. She informed all family members in no uncertain terms that she would never want to be on ventilatory support nor receive aggressive life support measures. Therefore, the patient's CODE STATUS will be changed to comfort care, ventilation and all other aggressive medical measures will be discontinued and the patient will be maintained in a state of comfort. Should she survive over the next several hours, I will consult palliative care to help with her transition out of the intensive care unit. Hellen Reece [phone]
[2016-06-13] MEDS: Budesonide/Formoterol 160/4.5 MDI IH SCH (11:51)
[2016-06-13] MEDS ORDERED: *HR* LORazepam 2 MG/ML VIAL IVP PRN (11:55)
[2016-06-13] MEDS ORDERED: *HR* Morphine 2 MG/ML SYRINGE IVP PRN (12:01)
--- NOTE | 2016-06-13 13:30 | Death Note ---
Discharge Sum: Summary - Date and Time Date of admission: 06/12/16 20:44 Date of : 06/13/16 Time of : 12:55 - Summary Details: This 60-year-old female who has significant past medical histories which include advanced stage lung cancer, COPD, cardiomyopathy among other health issues was admitted to the hospital following progressive decline at home and unresponsiveness. The patient presented to the emergency room and required intubation and ventilatory support. Given fluid nonresponsive hypotension and concern for sepsis, the patient received broad-spectrum antimicrobial agents directed toward pneumonia and also required use of pressor agent. At the time of admission to the intensive care unit, the patient was noted to suffer from multisystem organ failure as evidenced by renal dysfunction, hepatic dysfunction , oliguria, severe lactic acidosis and hematologic dysfunction as evidenced by coagulopathy. Dr. Monzon evaluated the patient and provided initial management for the patient at the time of her entry in the intensive care unit. He did contact the daughter and informed her in no uncertain terms that more than likely the patient would not survive the current illness in spite of aggressive appropriate medical measures. On the morning following the patient's admission, the patient remained pressor dependent was minimally responsive continued to require full ventilatory support. I reviewed the situation with the family including the only 3 members living (2 daughters, 1 sister) and all agreed that the patient would not want to continue the current level of aggressive care in spite of the fact that it is possible ( although unlikely) that she could survive. Given the rather dire circumstances of the patient's current illness, the high likelihood of non-survivability and in light of her wishes to not continue the current level of care as outlined by her family members, at the request of the family, life support was withdrawn. The patient was maintained in the state of comfort, utilizing medications to promote the state of comfort. At 1255 on 06-13-16, the patient was noted to display absence of spontaneous circulation respiration was unresponsive and hence was pronounced . - Additional Data Attending physician: Alejo Bond Discharge Sum: Diag - PCOD Probable Cause of : Septic shock - Contributing Factors (1) Septic shock Pneumonia, hepatic failure, acute kidney injury due to hemodynamically mediated ATN, COPD and advanced stage lung cancer Discharge Sum: Prov - Provider Primary care physician: Gabrielle Cortez MD Consults: 06/12/16 21:19 Consult to Pulmonology [CONS] Routine Consulting Provider: [facility] [place] Reason for Consult: icu management Call Completed: No Pronouncing clinician: Rodney Reece
[2016-06-13] MEDS ORDERED: *HR* Etomidate 20 MG/10 ML AMPUL IVP ONE (14:39)
[2016-06-13] MEDS ORDERED: Aminoglycoside Consult 1 EACH MC ONE (14:39)
[2016-06-13] MEDS ORDERED: *HR* Rocuronium Bromide 100 MG/10 ML VIAL IVC ONE (14:39)
== END 2016-06-13 14:40 | disposition expired | DRG 710 ==
LOC: EMEROO 17:53 → ICNU 20:44
PROVIDERS: ADMIT Hospitalist; ATTEND Internal Medicine